=== PATIENT | female | born 1935 | race Caucasian/White ===

== ENCOUNTER 2016-11-29 15:34 | Emergency (ER) | payer OTHER ==
[~2016-11-29] VITALS: Ht 157.5 cm; Wt 62.0 kg
[~2016-11-29 15:34] MED LIST: ASPIR 8181 M1 PO; ASPIR-LOW81 MG PO; BENADRYL25 MG PO; BISACODYL5 MG PO; CALCITRATE + D1 EACH PO; CALCIUM CITRATE PO; CIPROFLOXACIN500 M1 PO; ENABLEX7.5 MG PO; HYDROCODON-ACE1 EAC7 PO; HYDROCODON-ACE1 EAC9 PO; IRBESARTAN150 MG PO; LIDOCAINE700 MG TD; METOPROLOL SUCC25 MG PO; METOPROLOL TART25 MG PO; OS-CAL 500+D T1 EAC1 PO; PHOSPHA250 MG PO; PRAVASTATIN SOD40 MG PO; PRESERVISION T1 EACH PO; PRILOSEC20 MG PO; RECLAST5 MG/100 M IV; TYLENOL EXTRA500 MG PO; VITA PO; WELCHOL625 MG PO; XARELTO10 MG PO
[2016-11-29 17:00] LABS: HEMATOCRIT 34.3 % (36.0-46.0); MCH 31.5 PG (29.0-34.0); MCHC 33.8 G/DL (30.0-36.0); MCV 93.2 FL (83-99); MEAN PLAT.VOLUME 10.3 uM^3 (9.5-12.4); PLATELET COUNT 300 K/uL (156-360); RBC DIS.WIDTH-CV 12.3 % (11.8-14.6); RBC DIS.WIDTH-SD 42.2 % (39-53); RED BLOOD COUNT 3.68 M/uL (3.80-5.20); WHITE BLOOD COUNT 12.3 K/uL (4.1-10.2)
[2016-11-29 17:09] LABS: CHLORIDE 102 mEq/L (99-109); POTASSIUM 4.2 mEq/L (3.7-5.4); SODIUM 135 mEq/L (136-147)
[2016-11-29 17:10] LABS: GLUCOSE 131 mg/dL (70-99)
[2016-11-29 17:12] LABS: ANION GAP 9 MEQ/L (2-14)
[2016-11-29 17:14] LABS: GFR ESTIMATE (CALCULATED) 56 mL/min/
[2016-11-29 17:15] LABS: UREA NITROGEN (BUN) 20 mg/dL (9-23)
[2016-11-29 17:29] LABS: INTER. NORMALIZED RATIO 1.1; PROTHROMBIN TIME 10.7 (9.2-11.2); PTT 23.1 (25-32)
[2016-11-29 17:39] LABS: TOTAL BILIRUBIN 0.5 mg/dL (0.0-1.0)
[2016-11-29 17:40] LABS: ALKALINE PHOSPHATASE 108 IU/L (3-129)
[2016-11-29 17:42] LABS: DIRECT BILIRUBIN 0.2 mg/dL (0.0-0.3)
[2016-11-29 17:44] LABS: ADD MIUA? YES; BILIRUBIN NEGATIVE; BLOOD NEGATIVE; COLOR YELLOW ((YELLOW)); GLUCOSE (STRIP) NEGATIVE; KETONES NEGATIVE; LEUKOCYTES LARGE; NITRITE NEGATIVE; PROTEIN (STRIP) NEGATIVE; SPECIFIC GRAVITY 1.012 (1.000-1.030); UROBILINOGEN 0.2 MG/DL (0.2-1.0)
[2016-11-29 18:08] LABS: BACTERIA RARE /HPF; EPITHELIAL CELLS RARE /HPF; HYALINE CASTS 0-5 /LPF; MUCUS NONE SEEN /LPF; RED BLOOD CELLS 0-5 /HPF (0-5); UCUL ADDED? YES; WHITE BLOOD CELLS TNTC /HPF (0-5)
[2016-11-29] MEDS ORDERED: KEFLEX500 MG PO (19:24)
[2016-11-29 20:07] VITALS: BP 146/73
== END 2016-11-29 20:22 | disposition home or self-care (01) ==
LOC: EME 15:34
PROVIDERS: Physician Assistant
DX: N39.0 Urinary tract infection, site not specified (principal); I71.4 Abdominal aortic aneurysm, without rupture; M54.5 Low back pain; G89.29 Other chronic pain; Z96.649 Presence of unspecified artificial hip joint; Z96.659 Presence of unspecified artificial knee joint; Z88.8 Allergy status to other drugs, medicaments and biological substances; I10 Essential (primary) hypertension; K21.9 Gastro-esophageal reflux disease without esophagitis
CPT/HCPCS: 72132; 74174; 80048; 80076; 81003; 85027; 85610; 85730; 87086 GA; 99281; 99284; J0696; J3010; J7030; J7050

== ENCOUNTER → 2017-02-09 | Outpatient (CLI) | payer OTHER ==
[~2017-02-09] VITALS: Ht 154.9 cm; Wt 61.0 kg
[~2017-02-09] MED LIST changes: +KEFLEX500 MG PO
[2017-02-09 09:17] VITALS: BP 133/68
== END | disposition home or self-care (01) ==
LOC: IVINF 09:11
DX: M81.0 Age-related osteoporosis without current pathological fracture (principal)
CPT/HCPCS: 96365; J3489

== ENCOUNTER 2017-08-06 09:39 | Observation (INO) | payer OTHER ==
[~2017-08-06] VITALS: Ht 157.5 cm; Wt 56.8 kg
[2017-08-06 10:40] LABS: HEMATOCRIT 33.4 % (36.0-46.0); MCH 31.9 PG (29.0-34.0); MCHC 33.5 G/DL (30.0-36.0); MCV 95.2 FL (83-99); MEAN PLAT.VOLUME 10.3 uM^3 (9.5-12.4); PLATELET COUNT 243 K/uL (156-360); RBC DIS.WIDTH-CV 13.1 % (11.8-14.6); RBC DIS.WIDTH-SD 45.8 % (39-53); RED BLOOD COUNT 3.51 M/uL (3.80-5.20); WHITE BLOOD COUNT 7.7 K/uL (4.1-10.2)
[2017-08-06 10:51] LABS: CHLORIDE 103 mEq/L (99-109); SODIUM 135 mEq/L (136-147)
[2017-08-06 10:52] LABS: GLUCOSE 114 mg/dL (70-99)
[2017-08-06 10:54] LABS: ANION GAP 9 MEQ/L (2-14)
[2017-08-06 10:56] LABS: GFR ESTIMATE (CALCULATED) 50 mL/min/
[2017-08-06 10:57] LABS: UREA NITROGEN (BUN) 22 mg/dL (9-23)
[2017-08-06 11:00] LABS: TROP-I INTERPRETATION NEGATIVE; TROPONIN-I < 0.01 ng/mL (0.0-0.30)
[2017-08-06] MEDS ORDERED: LO-DOSE ASPIRIN81 M2 PO (12:47)
[2017-08-06 13:45] VITALS: BP 137/72
[2017-08-06 14:57] LABS: TROP-I INTERPRETATION NEGATIVE; TROPONIN-I 0.04 ng/mL (0.0-0.30)
[2017-08-06 19:34] VITALS: BP 151/69
[2017-08-06 22:34] LABS: TROP-I INTERPRETATION NEGATIVE; TROPONIN-I 0.06 ng/mL (0.0-0.30)
[2017-08-06 23:30] VITALS: BP 124/59
[2017-08-07 03:19] VITALS: BP 127/71
[2017-08-07 06:32] LABS: HEMATOCRIT 34.5 % (36.0-46.0); MCH 32.2 PG (29.0-34.0); MCHC 33.3 G/DL (30.0-36.0); MCV 96.6 FL (83-99); MEAN PLAT.VOLUME 11.1 uM^3 (9.5-12.4); PLATELET COUNT 270 K/uL (156-360); RBC DIS.WIDTH-CV 13.2 % (11.8-14.6); RBC DIS.WIDTH-SD 46.9 % (39-53); RED BLOOD COUNT 3.57 M/uL (3.80-5.20); WHITE BLOOD COUNT 8.9 K/uL (4.1-10.2)
[2017-08-07 06:53] LABS: ANION GAP 8 MEQ/L (2-14); CHLORIDE 103 MEQ/L (99-109); GFR ESTIMATE (CALCULATED) 56 mL/min/; GLUCOSE 97 mg/dL (70-99); POTASSIUM 4.2 MEQ/L (3.7-5.4); SAMPLE HEMOLYSIS CHECK 0; SAMPLE ICTERIC CHECK 0; SAMPLE LIPEMIA CHECK 0; SODIUM 136 MEQ/L (136-147); UREA NITROGEN (BUN) 17 mg/dL (9-23)
[2017-08-07 07:51] VITALS: BP 135/63
[2017-08-07 12:04] VITALS: BP 157/87
== END 2017-08-07 12:39 | disposition home or self-care (01) ==
LOC: EME 09:39 → EDOF 11:52 → 5WEST 11:52 → EDOF 11:52 → ENRESERV 11:58 → 5WEST 14:00
PROVIDERS: Internal Medicine
DX: R07.9 Chest pain, unspecified (principal); I10 Essential (primary) hypertension; E78.5 Hyperlipidemia, unspecified; K21.9 Gastro-esophageal reflux disease without esophagitis; J45.909 Unspecified asthma, uncomplicated; I71.4 Abdominal aortic aneurysm, without rupture; I65.23 Occlusion and stenosis of bilateral carotid arteries; Z87.19 Personal history of other diseases of the digestive system; M81.0 Age-related osteoporosis without current pathological fracture; Z96.642 Presence of left artificial hip joint; Z98.890 Other specified postprocedural states; Z79.82 Long term (current) use of aspirin; Z82.49 Family history of ischemic heart disease and other diseases of the circulatory system; Z82.3 Family history of stroke; Z83.3 Family history of diabetes mellitus
CPT/HCPCS: 71020; 80048; 84484; 85027; 93005; 99281; 99285; G0378